=== PATIENT | male | born 1995 | race Caucasian/White ===

== ENCOUNTER 2017-01-19 02:53 | Emergency (ER) | payer BC ==
--- NOTE | 2017-01-19 19:59 | ER ---
ADMIT: 01/19/2017 RM/LOC: ER [facility] MR#: [id number] [address] [id number] ANNIAJANNIEANANTH CARUSO [address] [place] [address] Emergency Room Report SEX: M AGE: 21 : 1995 DATE: 01/19/2017 HISTORY OF PRESENT ILLNESS: The patient is a 21-year-old male with past medical history of depression, was brought by Law Enforcement because of suicidal ideation for medical clearance. Allegedly, the patient told the girlfriend that he has the suicidal ideation and he wants to terminate his life without any specific plan, and the girlfriend called [employer] Enforcement and the patient was brought to the ER. The patient denies taking any medications, using drugs or using alcohol and states he has a history of depression. The patient states he has not been followed up by the primary care physician. The patient denies any headache, chest pain, shortness of breath, palpitation or abdominal pain. PHYSICAL EXAMINATION: VITAL SIGNS: The patient has stable vitals, in no pain or distress. GENERAL: Alert, oriented to person, place, and time. The patient denies any trauma or fall also. There are no obvious signs of trauma in the body. NEUROLOGIC: Normal. HEAD AND NECK: There are no signs of trauma. Trachea is midline. LUNGS: Equal bilateral breath sounds. Normal cardiac sounds. ABDOMEN: Soft. BACK: There is no tenderness. EXTREMITIES: He has normal range of motion without any signs of tenderness. Extremities had normal neurovascular exam. LABORATORY DATA: Urine tox was negative. Tylenol and aspirin level were also negative. UA was also negative for an abnormality. CMP showed sodium of 140 with potassium of 4.2, and bicarb of 28, and glucose of 103. Ethanol level was not detected. Free T4 was 1.1 with TSH of 1.2. The patient had 12.9 white BC with hemoglobin of 16.5, and platelet of 225,000. PLAN: The patient is stable to be cleared to [facility] for further followups and treatments. Miguel Yusuf MD/ gregoria JOB #: [id number] CC: Miguel Yusuf MD, Attending Physician Kendra Trammell MD, Family Physician
--- NOTE | 2017-01-24 09:26 | NUR ---
SAD referral. Pt was EPC'd to [facility].
== END 2017-01-19 06:00 ==
LOC: ER 02:53
DX: R45.851 Suicidal ideations (principal); F32.9 Major depressive disorder, single episode, unspecified